=== PATIENT | male | born 1945 | race Caucasian/White ===

== ENCOUNTER 2022-03-08 09:20 | Emergency (ER) | payer MEDICARE ==
[~2022-03-08] VITALS: Ht 195.6 cm; Wt 113.6 kg
[2022-03-08] MEDS ORDERED: ondansetron 4mg rapidly disintigrating tab PO ONE (09:25)
[2022-03-08] MEDS ORDERED: HYDROcodone/acetaminophen 10/325mg tab PO ONE (09:25)
[2022-03-08] MEDS ORDERED: normal saline 1000ML IV soln IVB ONE (09:35)
[2022-03-08] MEDS ORDERED: etomidate 2mg/ml inj. IV ONE (09:35)
--- NOTE | 2022-03-08 10:05 | NUR ---
Sling placed on R shoulder, post procedure.
[2022-03-08 10:32] VITALS: BP 118/62
--- NOTE | 2022-03-08 10:50 | NUR ---
Pt and given and understands d/c instructions. IV d/c'd, catheter was intact.
== END 2022-03-08 10:45 | disposition home or self-care (01) ==
LOC: ER 09:21
DX: S43.014A Anterior dislocation of right humerus, initial encounter (principal); M25.511 Pain in right shoulder; Z91.040 Latex allergy status; W01.0XXA Fall on same level from slipping, tripping and stumbling without subsequent striking against object, initial encounter; Y93.89 Activity, other specified; Y92.89 Other specified places as the place of occurrence of the external cause; Y99.8 Other external cause status
CPT/HCPCS: 23650; 73020; 73030; 94799; 99285; J7030; A4565; A4620

== ENCOUNTER 2022-08-11 09:41 | Outpatient (CLI) | payer MEDICARE, OTHER | END 2022-08-11 23:59 | disposition home or self-care (01) | LOC: RAD 09:41 | PROVIDERS: ATTEND Internal Medicine Cardiovascular Disease | DX: S46.811A Strain of other muscles, fascia and tendons at shoulder and upper arm level, right arm, initial encounter (principal); M19.011 Primary osteoarthritis, right shoulder; M62.511 Muscle wasting and atrophy, not elsewhere classified, right shoulder; X58.XXXA Exposure to other specified factors, initial encounter; Y93.89 Activity, other specified; Y92.89 Other specified places as the place of occurrence of the external cause; Y99.8 Other external cause status | CPT/HCPCS: 73221 ==

== ENCOUNTER 2022-08-14 07:31 | Emergency (ER) | payer MEDICARE, OTHER ==
[~2022-08-14] VITALS: Ht 195.6 cm; Wt 118.2 kg
[2022-08-14] MEDS ORDERED: propofol 10mg/ml 20ml vial IV ONE (07:50)
[2022-08-14 08:24] LABS: BASOPHILS # (AUTO) 0.1 X10'3 (0-0.2); BASOPHILS % (AUTO) 0.9 % (0-1); EOSINOPHILS # (AUTO) 0.3 X10'3 (0-0.9); EOSINOPHILS % (AUTO) 3.9 % (0-6); HEMATOCRIT 53.1 % (42.0-52.0); HEMOGLOBIN 17.8 g/dl (14.0-17.9); LYMPHOCYTES # (AUTO) 1.5 X10'3 (1.1-4.8); LYMPHOCYTES % (AUTO) 21.2 % (21-51); MEAN CORPUSCULAR HEMOGLOBIN 30.5 PG (27.0-31.0); MEAN CORPUSCULAR HGB CONC 33.6 g/dL (33.0-36.5); MEAN PLATELET VOLUME 8.6 FL (7.4-10.4); MONOCYTES # (AUTO) 0.9 X10'3 (0-0.9); MONOCYTES % (AUTO) 12.8 % (2-12); NEUTROPHILS # (AUTO) 4.2 X10'3 (1.8-7.7); NEUTROPHILS % (AUTO) 61.2 % (42-75); PLATELET COUNT 173 X10'3 (140-440); RED BLOOD COUNT 5.83 X10'6 (4.70-6.10); RED CELL DISTRIBUTION WIDTH 13.8 % (11.5-14.5); WHITE BLOOD COUNT 6.9 X10'3 (4.5-11.0)
[2022-08-14 08:31] LABS: ALANINE AMINOTRANSFERASE 34 U/L (12-78); ALBUMIN/GLOBULIN RATIO 0.9 (1.1-1.5); ALKALINE PHOSPHATASE 80 IU/L (46-116); ANION GAP 5 (8-16); ASPARTATE AMINO TRANSFERASE 26 U/L (10-37); BILIRUBIN,TOTAL 0.8 MG/DL (0.1-1.0); BLOOD UREA NITROGEN 21 MG/DL (7-18); BUN/CREATININE RATIO 17.8 (5.4-32.0); CALCIUM 9.2 MG/DL (8.5-10.1); CHLORIDE 103 MMOL/L (99-107); CREATININE 1.18 MG/DL (0.60-1.10); GLUCOSE 103 MG/DL (70-104); POTASSIUM 3.9 MMOL/L (3.5-5.1); SODIUM 138 MMOL/L (135-145); TOTAL CARBON DIOXIDE 30.1 MMOL/L (24-32); TOTAL PROTEIN 8.5 G/DL (6.4-8.2); eGFR 60 ML/MIN
[2022-08-14 08:38] LABS: MAGNESIUM 2.1 MG/DL (1.5-2.4)
[2022-08-14 08:43] VITALS: BP 113/67
== END 2022-08-14 09:00 | disposition home or self-care (01) ==
LOC: ER 07:31
DX: I48.91 Unspecified atrial fibrillation (principal); Z91.040 Latex allergy status
CPT/HCPCS: 36415; 80053; 83735; 83880; 85025; 92960; 93005; 99285; J2704; J7030; 94760; 99152; A4620